=== PATIENT | male | born 1990 | race Asian ===

== ENCOUNTER 2018-11-07 13:42 | Emergency (ER) | payer OTHER ==
[~2018-11-07] VITALS: Ht 165.1 cm; Wt 58.6 kg
[2018-11-07] MEDS ORDERED: HYDROCODONE/ACETAMINOPHEN 10-325 MG TABLET PO ONE (16:00)
[2018-11-07 17:00] VITALS: BP 124/77
== END 2018-11-07 17:12 | disposition home or self-care (01) ==
LOC: EMS 13:43
DX: S42.012A Anterior displaced fracture of sternal end of left clavicle, initial encounter for closed fracture (principal); V19.9XXA Pedal cyclist (driver) (passenger) injured in unspecified traffic accident, initial encounter; Y93.89 Activity, other specified; Y92.89 Other specified places as the place of occurrence of the external cause; Y99.8 Other external cause status
CPT/HCPCS: 29105